=== PATIENT | male | born 1980 | race Hispanic/Latino ===

== ENCOUNTER 2019-05-24 11:33 | Emergency (ER) | payer SELFPAY | END 2019-05-24 13:54 | disposition home or self-care (01) | LOC: EDH 11:33 | DX: S61.411A Laceration without foreign body of right hand, initial encounter (principal); Z91.013 Allergy to seafood; Z72.0 Tobacco use; W25.XXXA Contact with sharp glass, initial encounter; Y93.89 Activity, other specified; Y92.098 Other place in other non-institutional residence as the place of occurrence of the external cause; Y99.8 Other external cause status | CPT/HCPCS: 12002; 73130 ==

== ENCOUNTER 2019-06-08 09:49 | Emergency (ER) | payer SELFPAY | END 2019-06-08 10:17 | disposition home or self-care (01) | LOC: EDH 09:49 | DX: S61.411D Laceration without foreign body of right hand, subsequent encounter (principal); Z91.013 Allergy to seafood; X58.XXXD Exposure to other specified factors, subsequent encounter | CPT/HCPCS: 99281 ==